=== PATIENT | female | born 1960 ===

== ENCOUNTER 2017-06-15 12:01 | Emergency (ER) | payer MEDICAID ==
[2017-06-15 12:24] VITALS: BP 129/74; PULSE 67; RESP 18; TEMP 98.1; O2SAT 98
[2017-06-15] MEDS ORDERED: Aluminum Hydroxide/Magnesium Hydroxide Susp (30 mL) PO STA (12:46)
[2017-06-15] MEDS ORDERED: Aluminum Hydroxide/Magnesium Hydroxide Susp (30 mL) ONE (12:53)
--- NOTE | 2017-06-15 12:56 | C.PDOC ---
Time Seen by Provider: 06/15/17 12:38 Chief Complaint (Nursing): Lower Extremity Problem/Injury Past Medical History Vital Signs: Last Vital Signs Temp 98.1 F 06/15/17 12:21 Pulse 67 06/15/17 12:21 Resp 18 06/15/17 12:21 BP 129/74 06/15/17 12:21 Pulse Ox 98 06/15/17 12:21 - Medical History PMH: Anxiety, Depression, HTN - Social History Hx Alcohol Use: No Hx Substance Use: No - Immunization History Hx Tetanus Toxoid Vaccination: No Hx Influenza Vaccination: No Hx Pneumococcal Vaccination: No ED Course And Treatment O2 Sat by Pulse Oximetry: 98 Disposition - Disposition Referrals: Tu Mosquera MD [Staff Provider] - Disposition: HOME/ ROUTINE Disposition Time: 12:56 Condition: STABLE Forms: [facility] (Latvian)
--- NOTE | 2017-06-15 12:56 | C.PDOC ---
History Of Present Illness 57 y/o female with a hx of osteoarthritis, c/o left knee pain since yesterday and bilateral shoulder pain for the past week. Pain is 10/10. Patient notes the pain started to her right shoulder where she saw Dr. Mosquera and had an injection done, but does not know what the injection was. The left shoulder started a few days ago. Patient reports that she walked a lot yesterday which made the knee stiff, swollen, and hard to walk on. Left knee pain has happen before but was resolved with various treatment, but this time it is more severe. Patient tried various ointments with little relief. Denies nausea, vomiting, fever, or chills. No chest pain or SOB. Time Seen by Provider: 06/15/17 12:38 Chief Complaint (Nursing): Lower Extremity Problem/Injury History Per: Patient History/Exam Limitations: no limitations Onset/Duration Of Symptoms: Days Current Symptoms Are (Timing): Still Present Severity: Moderate Pain Scale Rating Of: 10 Recent travel outside of the [place]: No Additional History Per: Patient Past Medical History Reviewed: Historical Data, Nursing Documentation, Vital Signs Vital Signs: Last Vital Signs Temp 98.1 F 06/15/17 12:21 Pulse 67 06/15/17 12:21 Resp 18 06/15/17 12:21 BP 129/74 06/15/17 12:21 Pulse Ox 98 06/15/17 13:05 - Medical History PMH: Anxiety, Depression, HTN Family History: States: Unknown Family Hx - Social History Hx Alcohol Use: No Hx Substance Use: No - Immunization History Hx Tetanus Toxoid Vaccination: No Hx Influenza Vaccination: No Hx Pneumococcal Vaccination: No Review Of Systems Except As Marked, All Systems Reviewed And Found Negative. Constitutional: Negative for: Fever, Chills Cardiovascular: Negative for: Chest Pain Respiratory: Negative for: Shortness of Breath Gastrointestinal: Negative for: Nausea, Vomiting Musculoskeletal: Positive for: Shoulder Pain (Bilateral shoulders), Leg Pain ( Left knee) Neurological: Negative for: Weakness, Numbness Physical Exam - Physical Exam Appears: Non-toxic, No Acute Distress Skin: Warm, Dry Head: Atraumatic, Normacephalic Extremity: No Normal ROM (Decrease ROM to the left knee), No Tenderness, Capillary Refill (<2secs), No Deformity, Swelling (Significant swelling to the left knee.), Other (No warmth) Extremity: Bilateral: Normal Color And Temperature Pulses: Left Dorsalis Pedis: Normal, Right Dorsalis Pedis: Normal Neurological/Psych: Oriented x3, Normal Motor, Normal Sensation, Other (No focal deficit) Gait: Steady (Limping with walking) ED Course And Treatment O2 Sat by Pulse Oximetry: 98 (RA) Pulse Ox Interpretation: Normal Medical Decision Making Medical Decision Making: Plans: * Sami wrap * Tylenol * Motrin Disposition Counseled Patient/Family Regarding: Diagnosis, Need For Followup - Disposition Referrals: Tu Mosquera MD [Staff Provider] - Disposition: HOME/ ROUTINE Disposition Time: 12:56 Condition: STABLE Instructions: RICE Therapy (ED) Forms: [facility] (Slovak), Gen Discharge Inst Vietnamese - POA Present On Arrival: None - Clinical Impression Clinical Impression: Joint pain, Joint swelling - Scribe Statement The provider has reviewed the documentation as recorded by the Scribe Jimmy gilbert All medical record entries made by the Scribe were at my direction and personally dictated by me. I have reviewed the chart and agree that the record accurately reflects my personal performance of the history, physical exam, medical decision making, and the department course for this patient. I have also personally directed, reviewed, and agree with the discharge instructions and disposition.
== END 2017-06-15 13:10 | disposition home or self-care (01) ==
LOC: C.ER 12:01
DX: M25.50 Pain in unspecified joint (principal); M25.462 Effusion, left knee; I10 Essential (primary) hypertension